=== PATIENT | female | born 1990 | race Caucasian/White ===

== ENCOUNTER → 2019-03-31 14:09 | Outpatient (CLI) | payer OTHER, SELFPAY ==
[2019-03-31 15:10] LABS: Basophils # 0.1 K/mm3 (0-0.2); Basophils % 0.8 % (0.1-2.0); Eosinophils # 0.2 K/mm3 (0.0-0.4); Eosinophils % 2.4 % (0.1-12.0); Hematocrit 42.4 % (37.0-47.0); Hemoglobin 13.7 g/dL (12.2-16.2); Lymphocytes # 3.4 K/mm3 (0.7-4.5); Lymphocytes % 41.1 % (10-50); Mean Corpuscular HGB Conc 32.3 g/dL (31.8-35.4); Mean Corpuscular Hemoglobin 29.3 pg (27.0-31.2); Mean Corpuscular Volume 90.6 fl (81-99); Mean Platelet Volume 7.2 fl (7.4-10.4); Monocytes # 0.5 K/mm3 (0.1-1.0); Monocytes % 5.8 % (1.7-9.3); Neutrophils # 4.1 K/mm3 (1.8-7.8); Platelet Count 469 K/mm3 (142-424); Red Blood Count 4.68 M/mm3 (4.20-5.40); Red Cell Distribution Width 13.6 % (11.5-17.5); White Blood Count 8.3 K/mm3 (4.8-10.8)
[2019-03-31 15:33] LABS: Alanine Aminotransferase 27 U/L (12-78); Albumin Level 3.5 gm/dL (3.4-5.0); Albumin/Globulin Ratio 1.2 (1.1-1.8); Alkaline Phosphatase 62 U/L (46-116); Anion Gap 15.3 mEq/L (5-15); Aspartate Amino Transferase 24 U/L (15-37); Bilirubin,Total 0.1 mg/dL (0.2-1.0); Blood Urea Nitrogen 8 mg/dL (7-18); Calcium 8.6 mg/dL (8.5-10.1); Carbon Dioxide 25 mmol/L (21.0-32.0); Chloride 107 mmol/L (98-107); Chol/HDL Ratio 3.6 (1-3.5); Cholesterol 151 mg/dL (140-200); Estimated Glomerular Filt Rate 119 ml/min (>60); GFR (African American) 144 ML/MIN (>60); Globulin 2.9 gm/dl (1.3-3.2); Glucose 81 mg/dL (74-106); HDL Cholesterol 42 mg/dL (29-89); LDL Cholesterol 60 mg/dL (0-130); Potassium 4.3 mmoL/L (3.5-5.1); Sodium 143 mmol/L (136-145); T4 (Thyroxine) 7.7 ug/dl (4.7-13.3); Thyroid Stimulating Hormone 1.88 uIU/ml (0.358-3.740); Total Protein,Serum 6.4 gm/dL (6.4-8.2); Triglycerides 245 mg/dL (30-200); VLDL Cholesterol 49 mg/dL (0-40)
[2019-04-02 08:21] LABS: Hep A Ab, IgM Negative (Negative); Hepatitis B Core Antibody IgM Negative (Negative); Hepatitis B Surface Antigen Negative (Negative)
[2019-04-02 18:03] LABS: HIV Screen 4th Generation wRfx Non Reactive (Non Reactive)
[2019-04-02 18:04] LABS: Hepatitis C Antibody <0.1 s/co ratio (0.0-0.9); Vitamin D 25 Hydroxy 32.9 ng/mL (30.0-100.0)
[2019-04-05 10:31] LABS: Neisseria gonorrhoeae, NAA Negative (Negative)
== END ==
PROVIDERS: Visit Provider Physician Assistant
DX: Z01.419 Encounter for gynecological examination (general) (routine) without abnormal findings (principal); Z00.00 Encounter for general adult medical examination without abnormal findings
CPT/HCPCS: 80053; 80061; 80074; 82652; 84436; 84443; 85025; 86703; 87491; 87591; G0432

== ENCOUNTER → 2019-06-03 09:50 | Outpatient (CLI) | payer OTHER, SELFPAY | PROVIDERS: PCP Physician Assistant; Visit Provider Physician Assistant | DX: R06.00 Dyspnea, unspecified (principal) | CPT/HCPCS: 94060; 94727; 94729 ==

== ENCOUNTER → 2021-04-08 17:44 | Outpatient (CLI) | payer OTHER, SELFPAY ==
[2021-04-10 23:07] LABS: Neisseria gonorrhoeae, NAA Negative (Negative)
== END ==
PROVIDERS: Visit Provider Physician Assistant
DX: R30.0 Dysuria (principal)
CPT/HCPCS: 87086; 87491; 87591

== ENCOUNTER → 2021-04-17 12:19 | Outpatient (CLI) | payer OTHER, SELFPAY ==
--- NOTE | 2021-04-17 12:24 | XR_ITS ---
PROCEDURE: XR FOOT RT MIN 3V CLINICAL INDICATION: bilateral foot pain COMPARISON: No exams were available for comparison FINDINGS: No fracture or dislocation. No lytic or blastic change. There is normal mineralization. The joint spaces are well-preserved. No significant degenerative/arthritic changes. No erosive changes evident. Other findings:None. IMPRESSION: No acute findings. Dictated by: Chance Lara MD 04/17/2021 18:05 Chance Lara MD in [facility] 04/17/2021 18:05
--- NOTE | 2021-04-17 12:24 | XR_ITS ---
PROCEDURE: XR FOOT LT MIN 3V CLINICAL INDICATION: bilateral foot pain COMPARISON: No exams were available for comparison FINDINGS: No fracture or dislocation. No lytic or blastic change. There is normal mineralization. The joint spaces are well-preserved. No significant degenerative/arthritic changes. No erosive changes evident. Other findings:None. IMPRESSION: No acute findings. Dictated by: Chance Lara MD 04/17/2021 18:06 Chance Lara MD in [facility] 04/17/2021 18:06
== END ==
PROVIDERS: PCP Physician Assistant; Visit Provider Physician Assistant
DX: M79.671 Pain in right foot (principal); M79.672 Pain in left foot
CPT/HCPCS: 73630

== ENCOUNTER → 2021-04-29 15:57 | Outpatient (CLI) | payer OTHER, SELFPAY ==
--- NOTE | 2021-04-29 15:58 | MR_ITS ---
PROCEDURE: MR LUMBAR SPINE WO CON CLINICAL INDICATION: LBP COMPARISON: No exams were available for comparison TECHNIQUE: Standard multiplanar multiecho sequences are performed without contrast. 3-D MIP and myelographic images are also rendered and reviewed FINDINGS: There is normal alignment. The spinal cord ends at the L1-L2 level. T11-T12: Unremarkable. T12-L1: Unremarkable. L1-L2: Unremarkable L2-L3 and L3-L4 have an unremarkable appearance. L4-5: Mild facet and ligamentum hypertrophic change L5-S1: Minimal facet and ligamentum hypertrophy. No extruded herniated disc or bony canal stenosis. IMPRESSION: Mild facet and ligamentum hypertrophic change at L4-5 and L5-S1 otherwise negative. No extruded herniated disc. Dictated by: Chance Lara MD 04/30/2021 14:10 Chance Lara MD in [facility] 04/30/2021 14:10
== END ==
PROVIDERS: PCP Physician Assistant; Visit Provider Physician Assistant
DX: M54.50 Low back pain, unspecified (principal)
CPT/HCPCS: 72148; 76376

== ENCOUNTER → 2021-05-06 19:42 | Outpatient (CLI) | payer OTHER, SELFPAY ==
[2021-05-06 20:42] LABS: Basophils # 0.1 K/mm3 (0-0.2); Basophils % 1.1 % (0.1-2.0); Eosinophils # 0.2 K/mm3 (0.0-0.4); Hematocrit 45.7 % (37.0-47.0); Hemoglobin 15.2 g/dL (12.2-16.2); Lymphocytes # 2.3 K/mm3 (0.7-4.5); Mean Corpuscular HGB Conc 33.2 g/dL (31.8-35.4); Mean Corpuscular Volume 90.4 fl (81-99); Mean Platelet Volume 8.4 fl (7.4-10.4); Monocytes # 0.4 K/mm3 (0.1-1.0); Monocytes % 3.7 % (1.7-9.3); Neutrophils # 7.4 K/mm3 (1.8-7.8); Neutrophils % 71.2 % (37.0-80.0); Platelet Count 544 K/mm3 (142-424); Red Blood Count 5.05 M/mm3 (4.20-5.40); Red Cell Distribution Width 13.3 % (11.5-17.5); White Blood Count 10.3 K/mm3 (4.8-10.8)
[2021-05-06 21:20] LABS: Alanine Aminotransferase 34 U/L (12-78); Albumin/Globulin Ratio 1.5 (1.1-1.8); Alkaline Phosphatase 68 U/L (38-126); Anion Gap 11.4 mEq/L (5-15); Aspartate Amino Transferase 34 U/L (14-36); Bilirubin,Total 0.2 mg/dl (0.2-1.3); Blood Urea Nitrogen 11 mg/dl (7-17); Calcium 9.1 mg/dl (8.4-10.2); Carbon Dioxide 21 mmol/L (22.0-30.0); Chloride 109 mmol/L (98-107); Chol/HDL Ratio 3.7 (1-3.5); Cholesterol 183 mg/dl (140-200); Estimated Glomerular Filt Rate 98 ml/min (>60); GFR (African American) 119 ML/MIN (>60); Globulin 2.7 g/dL (1.3-3.2); Glucose 121 mg/dl (74-100); HDL Cholesterol 49 mg/dl (40-60); Potassium 4.4 mmoL/L (3.5-5.1); Sodium 137 mmol/L (136-145); Total Protein,Serum 6.7 g/dl (6.3-8.2); Triglycerides 258 mg/dl (30-150); VLDL Cholesterol 52 mg/dL (0-40)
[2021-05-06 21:36] LABS: 25-OH Vitamin D, Total 41.1 ng/mL (30-100)
[2021-05-06 21:43] LABS: Direct LDL Cholesterol 105.58 mg/dL (100-129)
[2021-05-06 22:05] LABS: T4 (Thyroxine) 7.8 ug/dl (5.53-11.0)
[2021-05-06 22:16] LABS: Thyroid Stimulating Hormone 1.24 uIU/mL (0.465-4.68)
== END ==
PROVIDERS: PCP Physician Assistant; Visit Provider Physician Assistant
DX: J45.909 Unspecified asthma, uncomplicated (principal); K21.9 Gastro-esophageal reflux disease without esophagitis; K58.9 Irritable bowel syndrome, unspecified; E66.3 Overweight; Z68.32 Body mass index [BMI] 32.0-32.9, adult
CPT/HCPCS: 80053; 80061; 82306; 84436; 84443; 85025

== ENCOUNTER → 2021-05-24 09:36 | Outpatient (CLI) | payer OTHER, SELFPAY ==
--- NOTE | 2021-05-24 09:36 | CT_ITS ---
PROCEDURE: CT HEAD/BRAIN WO CON CLINICAL INDICATION: headache, h/o TBI COMPARISON: No exams were available for comparison TECHNIQUE: Axial images obtained. All CT scans at the facility use one or more dose reduction, viz: automated exposure control, ma/kV adjustment per patient size (including targeted exams where dose is matched to indication, i.e. head), or iterative reconstruction technique. FINDINGS: No midline shift, mass effect, intracranial hemorrhage, hydrocephalus, or extra-axial fluid collection is evident. The calvarium has an unremarkable appearance. No mastoid effusion. No sinus air-fluid level. IMPRESSION: No acute intracranial finding Dictated by: Dr. Tremaine Man MD 05/24/2021 10:55 Dr. Tremaine Man MD in [facility] 05/24/2021 10:55
[2021-05-24 11:05] LABS: Basophils # 0.1 K/mm3 (0-0.2); Basophils % 0.5 % (0.1-2.0); Eosinophils # 0.2 K/mm3 (0.0-0.4); Eosinophils % 1.1 % (0.1-12.0); Lymphocytes # 2.2 K/mm3 (0.7-4.5); Mean Corpuscular HGB Conc 33.4 g/dL (31.8-35.4); Mean Corpuscular Hemoglobin 29.7 pg (27.0-31.2); Mean Platelet Volume 7.6 fl (7.4-10.4); Monocytes # 0.6 K/mm3 (0.1-1.0); Monocytes % 3.6 % (1.7-9.3); Neutrophils # 13.8 K/mm3 (1.8-7.8); Neutrophils % 81.9 % (37.0-80.0); Platelet Count 461 K/mm3 (142-424); Red Blood Count 5.06 M/mm3 (4.20-5.40); Red Cell Distribution Width 13.2 % (11.5-17.5); White Blood Count 16.9 K/mm3 (4.8-10.8)
[2021-05-24 11:17] LABS: MANUAL DIFFERENTIAL MANUAL DIFFERENTIAL (MANUAL DIFF)
[2021-05-24 12:02] LABS: Lymphocytes % 15 % (10-50); Monocytes % 2 % (2-9); Neutrophils % 83 % (42-76); Platelet Estimate Normal; Total Cells Counted 100
[2021-05-24 12:03] LABS: Hypochromasia 1+; Macrocytosis 1+
[2021-05-24 12:51] LABS: Hemoglobin A1C 5.3 % (4.0-6.0)
== END ==
PROVIDERS: PCP Physician Assistant; Visit Provider Physician Assistant
DX: R51.9 Headache, unspecified (principal); R42 Dizziness and giddiness; S06.9X9A Unspecified intracranial injury with loss of consciousness of unspecified duration, initial encounter; E11.9 Type 2 diabetes mellitus without complications; R73.09 Other abnormal glucose; R79.89 Other specified abnormal findings of blood chemistry
CPT/HCPCS: 36415; 70450; 83036; 85007; 85025

== ENCOUNTER → 2021-05-31 10:34 | Outpatient (CLI) | payer OTHER, SELFPAY ==
[2021-06-02 10:36] LABS: Peripheral Smear Review Scanned Result
== END ==
PROVIDERS: Visit Provider Physician Assistant
DX: R10.9 Unspecified abdominal pain (principal)
CPT/HCPCS: 36415

== ENCOUNTER → 2021-06-11 13:15 | Outpatient (CLI) | payer OTHER, SELFPAY ==
[2021-06-11 14:51] LABS: Amphetamine/Metha Screen,Urine Negative ng/ml (<1000); Barbiturates Screen,Urine Negative ng/ml (<200)
[2021-06-11 14:52] LABS: Benzodiazepines Screen,Urine Negative ng/ml (<200)
[2021-06-11 14:53] LABS: Cannabinoid Screen,Urine Negative ng/ml (<50); Cocaine Screen,Urine Negative ng/ml (<300)
[2021-06-11 14:54] LABS: Methadone Screen,Urine Negative ng/ml (<300); Opiate Screen,Urine Negative ng/ml (<300)
[2021-06-11 14:55] LABS: Phencyclidine Screen,Urine Negative ng/ml (<25)
== END ==
PROVIDERS: Visit Provider Physician Assistant
DX: F41.9 Anxiety disorder, unspecified (principal)
CPT/HCPCS: 80305

== ENCOUNTER → 2021-09-09 16:00 | Outpatient (CLI) | payer OTHER, SELFPAY ==
[2021-09-09 14:26] LABS: Basophils # 0.1 K/mm3 (0-0.2); Basophils % 0.5 % (0.1-2.0); Eosinophils # 0.2 K/mm3 (0.0-0.4); Hemoglobin 14.8 g/dL (12.2-16.2); Lymphocytes # 1.7 K/mm3 (0.7-4.5); Lymphocytes % 19.2 % (10-50); Mean Corpuscular HGB Conc 32.2 g/dL (31.8-35.4); Mean Corpuscular Hemoglobin 29.4 pg (27.0-31.2); Mean Corpuscular Volume 91.3 fl (81-99); Mean Platelet Volume 8.1 fl (7.4-10.4); Monocytes # 0.4 K/mm3 (0.1-1.0); Monocytes % 4.6 % (1.7-9.3); Neutrophils # 6.6 K/mm3 (1.8-7.8); Neutrophils % 73.7 % (37.0-80.0); Platelet Count 485 K/mm3 (142-424); Red Blood Count 5.04 M/mm3 (4.20-5.40)
[2021-09-11 13:57] LABS: Peripheral Smear Review Scanned Result
== END ==
PROVIDERS: Visit Provider Physician Assistant
DX: D75.839 Thrombocytosis, unspecified (principal); M31.19 Other thrombotic microangiopathy
CPT/HCPCS: 85025

== ENCOUNTER → 2021-10-22 13:37 | Outpatient (CLI) | payer OTHER, SELFPAY ==
[2021-10-22 17:04] LABS: Amphetamine/Metha Screen,Urine Negative ng/ml (<1000)
[2021-10-22 17:05] LABS: Barbiturates Screen,Urine Negative ng/ml (<200); Benzodiazepines Screen,Urine Negative ng/ml (<200)
[2021-10-22 17:06] LABS: Cannabinoid Screen,Urine Negative ng/ml (<50)
[2021-10-22 17:07] LABS: Cocaine Screen,Urine Negative ng/ml (<300); Methadone Screen,Urine Negative ng/ml (<300)
[2021-10-22 17:08] LABS: Opiate Screen,Urine Negative ng/ml (<300)
[2021-10-22 17:09] LABS: Phencyclidine Screen,Urine Negative ng/ml (<25)
== END ==
PROVIDERS: Visit Provider Physician Assistant
DX: F41.9 Anxiety disorder, unspecified (principal)
CPT/HCPCS: 80305

== ENCOUNTER → 2021-12-11 18:53 | Outpatient (CLI) | payer OTHER, SELFPAY ==
[2021-12-11 13:30] LABS: Basophils # 0.2 K/mm3 (0-0.2); Basophils % 2.8 % (0.1-2.0); Eosinophils # 0.2 K/mm3 (0.0-0.4); Eosinophils % 2.3 % (0.1-12.0); Hemoglobin 15.3 g/dL (12.2-16.2); Lymphocytes # 2.2 K/mm3 (0.7-4.5); Lymphocytes % 26.9 % (10-50); Mean Corpuscular HGB Conc 33.2 g/dL (31.8-35.4); Mean Corpuscular Hemoglobin 29.8 pg (27.0-31.2); Mean Corpuscular Volume 89.8 fl (81-99); Mean Platelet Volume 8.3 fl (7.4-10.4); Monocytes # 0.4 K/mm3 (0.1-1.0); Monocytes % 5.3 % (1.7-9.3); Neutrophils # 5.2 K/mm3 (1.8-7.8); Neutrophils % 62.8 % (37.0-80.0); Platelet Count 481 K/mm3 (142-424); Red Blood Count 5.12 M/mm3 (4.20-5.40); Red Cell Distribution Width 13.6 % (11.5-17.5); White Blood Count 8.2 K/mm3 (4.8-10.8)
[2021-12-11 14:04] LABS: Amphetamine/Metha Screen,Urine Negative ng/ml (<1000)
[2021-12-11 14:05] LABS: Barbiturates Screen,Urine Negative ng/ml (<200)
[2021-12-11 14:06] LABS: Benzodiazepines Screen,Urine Negative ng/ml (<200); Cannabinoid Screen,Urine Negative ng/ml (<50)
[2021-12-11 14:07] LABS: Cocaine Screen,Urine Negative ng/ml (<300); Methadone Screen,Urine Negative ng/ml (<300)
[2021-12-11 14:08] LABS: Opiate Screen,Urine Negative ng/ml (<300)
[2021-12-11 14:09] LABS: Phencyclidine Screen,Urine Negative ng/ml (<25)
== END ==
PROVIDERS: Visit Provider Physician Assistant
DX: Z00.00 Encounter for general adult medical examination without abnormal findings (principal); Z79.899 Other long term (current) drug therapy
CPT/HCPCS: 80305; 85025

== ENCOUNTER → 2022-04-02 17:06 | Outpatient (CLI) | payer OTHER, SELFPAY ==
[2022-04-02 15:52] LABS: Basophils # 0.1 K/mm3 (0-0.2); Basophils % 0.8 % (0.1-2.0); Eosinophils # 0.1 K/mm3 (0.0-0.4); Eosinophils % 1.3 % (0.1-12.0); Hematocrit 46.6 % (37.0-47.0); Lymphocytes # 2.2 K/mm3 (0.7-4.5); Mean Corpuscular HGB Conc 32.1 g/dL (31.8-35.4); Mean Corpuscular Hemoglobin 29.6 pg (27.0-31.2); Mean Corpuscular Volume 92.3 fl (81-99); Mean Platelet Volume 8.7 fl (7.4-10.4); Monocytes # 0.5 K/mm3 (0.1-1.0); Monocytes % 4.4 % (1.7-9.3); Neutrophils % 73.5 % (37.0-80.0); Platelet Count 503 K/mm3 (142-424); Red Blood Count 5.06 M/mm3 (4.20-5.40); Red Cell Distribution Width 13.2 % (11.5-17.5); White Blood Count 10.9 K/mm3 (4.8-10.8)
[2022-04-02 16:10] LABS: Alanine Aminotransferase 30 U/L (12-78); Albumin Level 4.1 g/dl (3.5-5.0); Albumin/Globulin Ratio 1.6 (1.1-1.8); Alkaline Phosphatase 73 U/L (38-126); Anion Gap 13.7 mEq/L (5-15); Aspartate Amino Transferase 35 U/L (14-36); Bilirubin,Total < 0.1 mg/dl (0.2-1.3); Blood Urea Nitrogen 14 mg/dl (7-17); Calcium 9.6 mg/dl (8.4-10.2); Carbon Dioxide 22 mmol/L (22.0-30.0); Chloride 105 mmol/L (98-107); Estimated Glomerular Filt Rate 84 ml/min (>60); GFR (African American) 101 ML/MIN (>60); Globulin 2.6 g/dL (1.3-3.2); Glucose 77 mg/dl (74-100); Potassium 4.7 mmoL/L (3.5-5.1); Sodium 136 mmol/L (136-145); Total Protein,Serum 6.7 g/dl (6.3-8.2)
[2022-04-02 16:40] LABS: Thyroid Stimulating Hormone 1.16 uIU/mL (0.465-4.68)
[2022-04-08 00:07] LABS: ALT (SGPT) P5P 31 IU/L (0-40); Alpha 2-Macroglobulins, Qn 178 mg/dL (110-276); Apolipoprotein A-1 147 mg/dL (116-209); Bilirubin, Total 0.2 mg/dL (0.0-1.2); Fibrosis Score 0.04 (0.00-0.21); GGT 30 IU/L (0-60); Haptoglobin 219 mg/dL (33-278); Necroinflammat Activity Grade A0-No activity (.); Necroinflammat Activity Score 0.11 (0.00-0.17)
[2022-04-13 21:27] LABS: Hep A Ab, IgM Negative; Hepatitis B Core Antibody IgM Negative; Hepatitis B Surface Antigen Negative; Hepatitis C Antibody <0.1
== END ==
PROVIDERS: PCP Physician Assistant; Visit Provider Physician Assistant
DX: Z00.00 Encounter for general adult medical examination without abnormal findings (principal); Z11.59 Encounter for screening for other viral diseases
CPT/HCPCS: 80053; 80074; 81596; 84443; 85025; 87340; 87522

== ENCOUNTER → 2022-04-29 08:46 | Outpatient (CLI) | payer OTHER, SELFPAY ==
[2022-04-29 12:47] LABS: HCG,Quantitative < 2 mIU/ml (0-5.42)
== END ==
PROVIDERS: PCP Physician Assistant; Visit Provider Internal Medicine
DX: Z01.818 Encounter for other preprocedural examination (principal); Z20.822 Contact with and (suspected) exposure to COVID-19; Z12.11 Encounter for screening for malignant neoplasm of colon
CPT/HCPCS: 36415; 84702; C9803; U0003; U0005

== ENCOUNTER 2022-04-30 09:42 | Day surgery (SDC) | payer OTHER, SELFPAY ==
[2022-04-28 10:51] VITALS: BMI 30.9
[2022-04-30 10:01] VITALS: BP 128/76; PULSE 87; RESP 18; TEMP 36.1; O2SAT 97
--- NOTE | 2022-04-30 10:06 | EXP.ANES.CKL ---
[facility] Medical History Anxiety Asthma Bipolar 1 disorder Chronic abdominal pain Depression GERD (gastroesophageal reflux disease) IBS (irritable bowel syndrome) Routine health maintenance Thrombocytosis Surgical History History of appendectomy History of cholecystectomy History of tonsillectomy Hx of tubal ligation Family History Family/Other Cancer Other Heart disease Social History Smoking Status: Current every day smoker tobacco type: cigarettes packs per day: 1 alcohol intake: current substance use type: former substance user, crack/cocaine and opiates current occupational status: unemployed Travel in the last 8 weeks: None number of children: 3 caffeine: No [facility] Anesthesia Checklist Patient Identification Patient Identification: Arm Band and Verbal (Name & ) Structural Data Admitted From: Home Planned Operative Procedure/s: Colonoscopy Consent for Planned Operative Procedure(s) Verified: Yes NPO Status Verified Time NPO: 07:30 (Prep) Additional verifications Anesthesia Reactions: No Airway Assessment C-Spine Mobility Assessed: Yes TMJ Mobility Assessed: Yes Dentition: Good Dentition Neurological Assessment Level of Consciousness: Awake Hx Seizures: No Numbness or tingling in extremities: No Anesthesia Plan Anesthesia Risk discussed: Yes Anesthesia Plan: Verified ASA Class: II Anesthesia Type: MAC
[2022-04-30 10:10] LABS: Urine Pregnancy, HCG Qual. Negative (Negative)
[2022-04-30 11:13] VITALS: O2SAT 97
--- NOTE | 2022-04-30 11:30 | HMH.SCOPE ---
Procedure: Date: 04/30/22 Patient Date of :: 1990 Procedure Performed:: Colonoscopyt Indications:: The patient is a 31 year old who presents for surveillance colonoscopy. The patient reports a colonoscopy 3 years ago with colon polyps removed. Colonoscopy report and pathology results are not availabe for review Performing Provider:: Saman Watkins MD Referring Provider:: FLAVIO Davila Sedation:: See RN records Procedure:: After placing the patient in the left lateral decubitus position, the colonoscopy was gently inserted into the rectum and under direct visualization advanced to the cecum which was identified by transillumination in the right lower quadrant, identification of the ileocecal valve, appendiceal orifice, and cecal strap. Color, texture, mucosa, and anatomy of the colon were carefully examined with the scope. Findings:: Anal canal: normal Rectum: normal Sigmoid colon: normal without polyps or inflammatory changes Descending colon: normal without polyps or inflammatory changes Splenic flexure: normal Transverse colon: normal without polyps or inflammatory changes Hepatic flexure: normal Ascending colon: normal without polyps or inflammatory changes Cecum: normal Terminal ileum: not visualized Recommendations:: Will likely recommend repeat colonoscopy in 5 years. Extending the timing to next colonoscopy could be recommended depending on pathology results from the patient's last colonoscopy. Complications:: None Estimated blood obtained (mL): 0
[2022-04-30 11:36] VITALS: BP 89/52; PULSE 71; RESP 16; TEMP 36.6; O2SAT 97
[2022-04-30 11:46] VITALS: BP 93/57; PULSE 77; RESP 16; O2SAT 97
[2022-04-30 11:56] VITALS: BP 101/63; PULSE 69; RESP 17; O2SAT 99
[2022-04-30 12:06] VITALS: BP 110/62; PULSE 69; RESP 17; O2SAT 99
== END 2022-04-30 12:07 | disposition home or self-care (01) ==
PROVIDERS: PCP Physician Assistant; Visit Provider Internal Medicine
PROC: 0DJD8ZZ Inspection of Lower Intestinal Tract, Via Natural or Artificial Opening Endoscopic (ICD-10-PCS; CPT 45378; principal; 2022-04-30 10:30)
DX: Z12.11 Encounter for screening for malignant neoplasm of colon (principal); Z86.010 Personal history of colon polyps; F17.210 Nicotine dependence, cigarettes, uncomplicated; Z79.899 Other long term (current) drug therapy
CPT/HCPCS: 45378; 81025

== ENCOUNTER → 2022-05-16 11:13 | Outpatient (CLI) | payer OTHER, SELFPAY ==
[2022-05-16 12:45] LABS: Iron 53 ug/dL (37-170)
[2022-05-16 12:56] LABS: Total Iron Binding Capacity 433 ug/dL (265-497)
[2022-05-16 13:22] LABS: Ferritin 34.5 ng/ml (6.24-137)
[2022-05-18 11:37] LABS: Peripheral Smear Review Scanned Result
[2022-05-24 11:15] LABS: Interpretation: Negative (.)
== END ==
PROVIDERS: PCP Physician Assistant; Visit Provider Internal Medicine Medical Oncology
DX: D69.6 Thrombocytopenia, unspecified (principal)
CPT/HCPCS: 36415; 81206; 81270; 82728; 83540; 83550

== ENCOUNTER → 2022-05-29 08:27 | Outpatient (CLI) | payer OTHER, SELFPAY ==
--- NOTE | 2022-05-29 08:36 | US_ITS ---
FINAL REPORT CLINICAL HISTORY: splenomegaly, thrombocytopeniu, high wbc count FINDINGS: US ABDOMINAL LIMITED Limited sonographic images were obtained of the left side of the abdomen. The spleen at measures up to 10.8 cm. There are scattered calcified granulomas in the spleen. The left kidney measures up to 10.4 cm. There is no hydronephrosis. There is no mass or fluid collection. IMPRESSION: No mass or fluid collection. Reviewed, Interpreted and Dictated by Jay Griffin III, MD Transcribed by Jarett Weber Authenticated and . [facility]
== END ==
PROVIDERS: PCP Physician Assistant; Visit Provider Internal Medicine Medical Oncology
DX: R16.1 Splenomegaly, not elsewhere classified (principal); D69.6 Thrombocytopenia, unspecified
CPT/HCPCS: 76705

== ENCOUNTER → 2022-08-11 10:16 | Outpatient (CLI) | payer OTHER, SELFPAY ==
[2022-08-11 10:36] LABS: Microscopic, Urine URINE MICROSCOPIC (MICROSCOPIC)
[2022-08-11 10:57] LABS: Appearance,Urine SL CLOUDY (Clear); Bilirubin,Urine Negative (Negative); Blood, Urine 2+ (Negative); Color,Urine YELLOW (Yellow); Glucose,Urine (UA) Negative (Negative); Ketones,Urine Negative (Negative); Leukocyte Esterase,Urine 2+ (Negative); Nitrate,Urine Negative (Negative); Protein,Urine TRACE (Negative); Specific Gravity, Urine 1.015 (1.005-1.030); Urobilinogen,Urine 0.2 EU/dl (0.2)
[2022-08-11 11:18] LABS: Bacteria,Urine 2+ /lpf; RBC,Urine Occasional #/hpf (0-3); Squamous Epithelial Cell,Urine Occasional #/hpf (0-5); WBC,Urine 20-50 #/hpf (0-3)
[2022-08-11 11:37] LABS: Amphetamine/Metha Screen,Urine Negative ng/ml (<1000); Barbiturates Screen,Urine Negative ng/ml (<200)
[2022-08-11 11:38] LABS: Benzodiazepines Screen,Urine Negative ng/ml (<200)
[2022-08-11 11:39] LABS: Cannabinoid Screen,Urine Negative ng/ml (<50); Cocaine Screen,Urine Negative ng/ml (<300)
[2022-08-11 11:40] LABS: Methadone Screen,Urine Negative ng/ml (<300)
[2022-08-11 11:41] LABS: Opiate Screen,Urine Negative ng/ml (<300); Phencyclidine Screen,Urine Negative ng/ml (<25)
[2022-08-12 22:35] LABS: Neisseria gonorrhoeae, NAA Negative (Negative)
== END ==
PROVIDERS: PCP Physician Assistant; Visit Provider Physician Assistant
DX: N76.0 Acute vaginitis (principal); Z20.2 Contact with and (suspected) exposure to infections with a predominantly sexual mode of transmission; Z79.899 Other long term (current) drug therapy
CPT/HCPCS: 80305; 81001; 87086; 87088; 87186; 87210; 87491; 87591

== ENCOUNTER → 2023-05-27 23:24 | Outpatient (CLI) | payer OTHER, SELFPAY ==
[2023-05-27 20:50] LABS: Amphetamine/Metha Screen,Urine Negative ng/ml (<1000); Barbiturates Screen,Urine Negative ng/ml (<200)
[2023-05-27 20:51] LABS: Benzodiazepines Screen,Urine Negative ng/ml (<200)
[2023-05-27 20:52] LABS: Cannabinoid Screen,Urine Negative ng/ml (<50); Cocaine Screen,Urine Negative ng/ml (<300)
[2023-05-27 20:54] LABS: Methadone Screen,Urine Negative ng/ml (<300)
[2023-05-27 20:55] LABS: Opiate Screen,Urine Negative ng/ml (<300)
[2023-05-27 20:56] LABS: Phencyclidine Screen,Urine Negative ng/ml (<25)
== END ==
PROVIDERS: PCP Physician Assistant; Visit Provider Internal Medicine
DX: Z79.899 Other long term (current) drug therapy (principal)
CPT/HCPCS: 80305

== ENCOUNTER → 2023-06-08 10:47 | Outpatient (CLI) | payer OTHER, SELFPAY ==
[2023-06-08 19:05] LABS: Basophils # 0.1 K/mm3 (0-0.2); Basophils % 0.6 % (0.1-2.0); Eosinophils # 0.1 K/mm3 (0.0-0.4); Eosinophils % 1.3 % (0.1-12.0); Hematocrit 43.6 % (37.0-47.0); Hemoglobin 15.1 g/dL (12.2-16.2); Lymphocytes # 2.3 K/mm3 (0.7-4.5); Lymphocytes % 23.6 % (10-50); Mean Corpuscular HGB Conc 34.5 g/dL (31.8-35.4); Mean Corpuscular Hemoglobin 31.5 pg (27.0-31.2); Mean Corpuscular Volume 91.3 fl (81-99); Mean Platelet Volume 8.1 fl (7.4-10.4); Monocytes # 0.4 K/mm3 (0.1-1.0); Monocytes % 3.8 % (1.7-9.3); Neutrophils # 6.8 K/mm3 (1.8-7.8); Neutrophils % 70.8 % (37.0-80.0); Platelet Count 436 K/mm3 (142-424); Red Blood Count 4.78 M/mm3 (4.20-5.40); Red Cell Distribution Width 12.7 % (11.5-17.5); White Blood Count 9.7 K/mm3 (4.8-10.8)
[2023-06-08 19:07] LABS: Alanine Aminotransferase 27 U/L (12-78); Albumin Level 4.1 g/dl (3.5-5.0); Albumin/Globulin Ratio 1.6 (1.1-1.8); Alkaline Phosphatase 59 U/L (38-126); Anion Gap 13.1 mEq/L (5-15); Aspartate Amino Transferase 32 U/L (14-36); Bilirubin,Total 0.3 mg/dl (0.2-1.3); Blood Urea Nitrogen 13 mg/dl (7-17); Calcium 9.4 mg/dl (8.4-10.2); Carbon Dioxide 25 mmol/L (22.0-30.0); Chloride 104 mmol/L (98-107); Chol/HDL Ratio 3.3 (1-3.5); Cholesterol 165 mg/dl (140-200); Estimated Glomerular Filt Rate 83 ml/min (>60); GFR (African American) 100 ML/MIN (>60); Globulin 2.6 g/dL (1.3-3.2); Glucose 99 mg/dl (74-100); HDL Cholesterol 50 mg/dl (40-60); Potassium 4.1 mmoL/L (3.5-5.1); Sodium 138 mmol/L (136-145); Total Protein,Serum 6.7 g/dl (6.3-8.2); Triglycerides 205 mg/dl (30-150); VLDL Cholesterol 41 mg/dL (0-40)
[2023-06-08 19:18] LABS: Direct LDL Cholesterol 84.97 mg/dL (100-129)
[2023-06-08 19:19] LABS: Iron 114 ug/dL (37-170)
[2023-06-08 19:25] LABS: 25-OH Vitamin D, Total 32.8 ng/mL (30-100)
[2023-06-08 19:37] LABS: Thyroid Stimulating Hormone 1.11 uIU/mL (0.465-4.68)
[2023-06-08 19:56] LABS: Vitamin B12 367 pg/mL (239-931)
[2023-06-08 20:09] LABS: Amphetamine/Metha Screen,Urine Negative ng/ml (<1000); Barbiturates Screen,Urine Negative ng/ml (<200)
[2023-06-08 20:10] LABS: Benzodiazepines Screen,Urine Negative ng/ml (<200)
[2023-06-08 20:11] LABS: Cannabinoid Screen,Urine Negative ng/ml (<50); Cocaine Screen,Urine Negative ng/ml (<300)
[2023-06-08 20:12] LABS: Methadone Screen,Urine Negative ng/ml (<300)
[2023-06-08 20:13] LABS: Opiate Screen,Urine Negative ng/ml (<300); Phencyclidine Screen,Urine Negative ng/ml (<25)
[2023-06-11 22:07] LABS: Neisseria gonorrhoeae, NAA Negative (Negative)
== END ==
PROVIDERS: PCP Internal Medicine; Visit Provider Internal Medicine
DX: E61.1 Iron deficiency (principal); R53.83 Other fatigue; Z79.899 Other long term (current) drug therapy; N89.8 Other specified noninflammatory disorders of vagina; Z68.27 Body mass index [BMI] 27.0-27.9, adult
CPT/HCPCS: 80053; 80061; 80305; 82306; 82607; 83036; 83540; 84443; 85025; 87491; 87591

== ENCOUNTER 2024-04-21 10:48 | Outpatient (CLI) | payer OTHER, SELFPAY ==
[2024-04-21 11:03] LABS: Basophils # 0.1 K/mm3 (0-0.2); Basophils % 0.8 % (0.1-2.0); Eosinophils # 0.1 K/mm3 (0.0-0.4); Eosinophils % 1.2 % (0.1-12.0); Hematocrit 46.8 % (37.0-47.0); Hemoglobin 15.1 g/dL (12.2-16.2); Lymphocytes # 1.8 K/mm3 (0.7-4.5); Lymphocytes % 17.2 % (10-50); Mean Corpuscular HGB Conc 32.3 g/dL (31.8-35.4); Mean Platelet Volume 7.7 fl (7.4-10.4); Monocytes # 0.5 K/mm3 (0.1-1.0); Monocytes % 4.8 % (1.7-9.3); Neutrophils # 8.2 K/mm3 (1.8-7.8); Neutrophils % 76.1 % (37.0-80.0); Platelet Count 493 K/mm3 (142-424); Red Blood Count 4.87 M/mm3 (4.20-5.40); Red Cell Distribution Width 13.2 % (11.5-17.5); White Blood Count 10.7 K/mm3 (4.8-10.8)
[2024-04-21 11:40] LABS: Albumin Level 4.2 g/dl (3.5-5.0); Chloride 106 mmol/L (98-107); Potassium 4.3 mmoL/L (3.5-5.1); Sodium 137 mmol/L (136-145)
[2024-04-21 11:43] LABS: Alanine Aminotransferase 20 U/L (12-78); Albumin/Globulin Ratio 1.8 (1.1-1.8); Alkaline Phosphatase 46 U/L (38-126); Anion Gap 7.3 mEq/L (5-15); Aspartate Amino Transferase 24 U/L (14-36); Bilirubin,Total 0.6 mg/dl (0.2-1.3); Blood Urea Nitrogen 12 mg/dl (7-17); Carbon Dioxide 28 mmol/L (22.0-30.0); Estimated Glomerular Filt Rate 83 ml/min (>60); GFR (African American) 100 ML/MIN (>60); Globulin 2.4 g/dL (1.3-3.2); Iron 107 ug/dL (37-170); Total Protein,Serum 6.6 g/dl (6.3-8.2)
[2024-04-21 11:44] LABS: Calcium 10.2 mg/dl (8.4-10.2); Glucose 84 mg/dl (74-100)
[2024-04-21 11:53] LABS: Total Iron Binding Capacity 388 ug/dL (265-497)
[2024-04-21 12:21] LABS: Ferritin 51.7 ng/ml (6.24-137)
[2024-04-23 10:54] LABS: Peripheral Smear Review Scanned Result
== END 2024-04-21 23:59 | disposition home or self-care (01) ==
LOC: LAB 10:49
PROVIDERS: PCP Physician Assistant; Visit Provider Internal Medicine Medical Oncology
DX: D75.839 Thrombocytosis, unspecified (principal)
CPT/HCPCS: 36415; 80053; 82728; 83540; 83550; 85025

== ENCOUNTER 2024-08-16 09:07 | Outpatient (CLI) | payer OTHER, SELFPAY ==
--- NOTE | 2024-08-16 09:14 | XR_ITS ---
FINAL REPORT CLINICAL HISTORY: Foot Pain FINDINGS: Right foot Three views were obtained. There is no fracture or dislocation. The joint spaces appear normal. No soft tissue abnormality is identified. IMPRESSION: No acute process. Reviewed, Interpreted and Dictated by Rony Hall MD Transcribed by Neida Chang Authenticated and [facility]
--- NOTE | 2024-08-16 09:14 | XR_ITS ---
FINAL REPORT CLINICAL HISTORY: Foot pain FINDINGS: Left foot Three views were obtained. There is no fracture or dislocation. The joint spaces appear normal. No soft tissue abnormality is identified. There is a small plantar spur. IMPRESSION: No acute process. Reviewed, Interpreted and Dictated by Rony Hall MD Transcribed by Neida Chang Authenticated and [facility]
== END 2024-08-16 23:59 | disposition home or self-care (01) ==
LOC: RAD 09:09
PROVIDERS: Visit Provider Podiatrist
DX: M79.671 Pain in right foot (principal); M79.672 Pain in left foot
CPT/HCPCS: 73630